=== PATIENT | male | born 1970 | race Caucasian/White ===

== ENCOUNTER 2024-07-04 12:02 | Emergency (ER) | payer OTHER ==
[~2024-07-04] VITALS: Ht 175.3 cm; Wt 86.0 kg
[2024-07-04] MEDS: TETanus/Pertussis (Acell)/Diphther VAC/PF (Tdap-Adult) 0.5ml syringe IMVAC ONE (14:48)
[2024-07-04] MEDS ORDERED: CEPH-585 PO (15:32)
[2024-07-04] MEDS: LIDOcaine 1% 30ml preserv. free vial SQ STA (16:02)
[2024-07-04] MEDS: ampicillin/sulbac 3gm/NS 100ml 100 ML IV STA (16:11)
[2024-07-04 17:19] VITALS: BP 137/87; PULSE 58; RESP 16; TEMP 97.9; O2SAT 99
== END 2024-07-04 17:24 | disposition home or self-care (01) ==
LOC: ER 12:03
DX: M79.5 Residual foreign body in soft tissue (principal); Z88.6 Allergy status to analgesic agent
CPT/HCPCS: 73140; 90471; 90715; 96365; 99284; J0295; A6258; A6449